=== PATIENT | female | born 2000 | race Caucasian/White ===

== ENCOUNTER 2021-02-05 01:51 | Emergency (ER) | payer OTHER, SELFPAY ==
[2021-02-05 02:02] VITALS: BP 103/73; PULSE 69; RESP 16; TEMP 36.3; O2SAT 98
--- NOTE | 2021-02-05 02:30 | ED.ANIMALBIT ---
HPI - Animal Bite General Chief Complaint: Animal Bite Stated Complaint: dog bite Time Seen by Provider: 02/05/21 02:25 Source: patient Mode of arrival: ambulatory Limitations: no limitations History of Present Illness HPI narrative: Patient is a 20-year-old female complaining of lip and left cheek laceration after being bitten by a dog at a bar when she bent down to pet it prior to arrival. Denies any other injuries. Related Data Allergies Allergy/AdvReac Type Severity Reaction Status Date / Time No Known Allergies Allergy Verified 02/05/21 02:11 Review of Systems Review of Systems: All systems reviewed & are unremarkable except as noted in HPI and below PMFSH Social History Social History Gender identity (if verbalized by the patient): Female Comments Past medical history: None Social history: Non-smoker no EtOH or drug use Family history: Noncontributory Exam Const: General: cooperative, healthy appearing, comfortable, no acute distress, well developed, alert and awake; No confusion Orientation/consciousness: oriented to person, oriented to place, oriented to time, patient oriented x3 and No confusion Limitations: no limitations HENMT: Head: normal to inspection, normocephalic and atraumatic Ears: hearing grossly normal bilaterally, TM normal on the right and TM normal on the left General nose exam: Normal external nose present, Normal nares present and No nasal discharge present Mouth: Yes Normal oral and palatal mucosa present, Yes tongue normal and Yes oropharynx normal Throat: posterior oropharynx normal, tonsils normal and uvula midline Other: Upper lip laceration measuring approximately 3 cm Left cheek laceration measuring approximately 2 cm Eyes: General: appearance normal, both eyes and all related structures Pupils: Equal, round and reactive pupils present EOM: EOMs intact bilaterally Neck: Neck: normal visual inspection, full ROM, no lymphadenopathy and no meningeal signs Chest: Chest palpation & inspection: normal inspection of the chest Resp: Effort & Inspection: normal respiratory effort, able to speak in complete sentences, no respiratory distress and not tachypneic Auscultation: clear to auscultation bilaterally, no crackles, no rales, no rhonchi and no wheezes Cardio: Rate: regular rate Rhythm: regular rhythm GI: Inspection: normal to inspection GI Palp: No abdominal tenderness, Yes Soft to palpation, No Tenderness to palpation present (GI), No Guarding due to palpation present (GI), No Rigid due to palpation and No Rebound tenderness present Auscultation: normal bowel sounds : General: Yes no CVA tenderness Back/Spine/Pelvis: Back: no CVA tenderness Skin: General skin exam: normal color, no rashes or lesions noted, elasticity normal and turgor normal Neuro: General: oriented to person, oriented to place, oriented to time, patient oriented x3, tone normal, moves all extremities, Normal light touch and pain sensation, no meningeal signs, no focal motor deficits, CN's II-XI intact bilaterally and No confusion Cranial nerves: Yes Equal, round and reactive pupils present Speech: No Abnormal speech present Sensory Exam: No Sensory deficit (Neuro) Extrem: General: normal to inspection, full ROM and capillary refill normal Psych: Appearance: grossly normal and well kempt Mental Status: mental status grossly normal Speech and movement: Normal speech and movement present Affect: normal affect Attitude: cooperative Thought process: Normal thought process present Thought content: Yes Normal thought content present Insight: Good insight present (Psych) Judgement: Good judgement present (Psych) Course Vital Signs Vital signs: Vital Signs Temperature 36.3 C L 02/05/21 02:02 Pulse Rate 69 02/05/21 02:02 Respiratory Rate 16 02/05/21 02:02 Blood Pressure 103/73 02/05/21 02:02 Pulse Oximetry 98 02/05/21 02:02 Temperature 36.3 C L 02/05/21 02:02 Pulse Rate 69
[2021-02-05] MEDS: AMOXICILLIN/CLAVULANATE K 500-125 MG TAB 1 TABLET PO (03:51)
[2021-02-05 03:53] VITALS: BP 123/78; PULSE 91; RESP 16; O2SAT 99
== END 2021-02-05 03:53 | disposition home or self-care (01) ==
LOC: ANHED 03:29
PROVIDERS: Emergency Provider Emergency Medicine
DX: S01.511A Laceration without foreign body of lip, initial encounter (principal); S01.81XA Laceration without foreign body of other part of head, initial encounter; W54.0XXA Bitten by dog, initial encounter
CPT/HCPCS: 12013; 99283; A9270

== ENCOUNTER 2024-04-24 10:51 | Outpatient (CLI) | payer OTHER, SELFPAY ==
[2024-04-24 11:06] LABS: Hematocrit 41.2 % (37.0-47.0); Hemoglobin 13.4 g/dL (12.0-15.0)
== END 2024-04-24 10:52 | disposition home or self-care (01) ==
PROVIDERS: Visit Provider Obstetrics & Gynecology
DX: Z01.812 Encounter for preprocedural laboratory examination (principal); N94.6 Dysmenorrhea, unspecified
CPT/HCPCS: 36415; 85014; 85018; 86850; 86900; 86901

== ENCOUNTER 2024-04-26 01:36 | Day surgery (SDC) | payer OTHER, SELFPAY ==
[2024-04-18 09:58] VITALS: BMI 23.8
--- NOTE | 2024-04-18 10:10 | PC.NURSE ---
Report to the Outpatient Waiting Room, entrance under the green pavilion located off [facility], at time ____529___ on date ___04/26/24___. Planned Procedure Time: .? Time changes happen often and if your time is changed the preop area will call you the afternoon before. - You and your visitor will be asked to self-screen and do not enter if you have any COVID symptoms. Please call surgeon if you need to reschedule. - A mask is optional within the hospital at this time. Patients may have clear liquids (water, carbonated beverages, clear teas, apple juice) until 3 hours prior to surgery with a maximum of 20 ounces. - No food from midnight until time of surgery and no smoking - Infants may have breast milk until 4 hours before surgery, infant formula 6 hours prior to surgery. - Children will be allowed to drink immediately following surgery.? If applicable, please bring a bottle or sippy cup to assist with drinking. Juice, water, soda, and popsicles are readily available.? For infants on formula, please bring formula the day of surgery.? Pacifiers are allowed. Take only the following medications with a SIP of water on the morning of surgery: ____N/A DO NOT STOP ANY OF YOUR OTHER PRESCRIPTION MEDICATIONS PRIOR TO SURGERY EXCEPT THE FOLLOWING Medications to discontinue per physician N/A Date to take last dose N/A Please no make-up, nail nicaraguan, hairspray, perfume, deodorant, or body powder the day of surgery.? No jewelry (including any body piercings) or valuables the day of surgery, leave them at home.? Please take a shower or bath the night before, or the morning of, surgery with an antibacterial soap.? Wear comfortable, loose fitting clothing.? Children are encouraged to wear pajamas. - Jewelry must be removed prior to entering the operating room.? Rings and piercings that are not removed may be cut off. - The hospital will not accept responsibility for valuables.? - Please leave all valuables, including medications, at home the day of surgery. If you are going home after surgery, a licensed bicycle taxi driver must drive you home.? - NO public transportation without another adult if you receive anesthesia. - We recommend that an adult stay with you for 24 hours following discharge. - We also recommend that you do not drive, make important decision, drink alcoholic beverages, or take any drugs that were not prescribed by your health care provider for at least 24 hours after your discharge time. For Pediatric surgeries, we recommend two adults accompany the child home. Follow any additional instructions given to you from your surgeon. Telephone instructions given to Francia Ortiz and asked if any additional questions and then verbalized understanding. Patient advised to call surgeon office or pre surgery nurse liaison [phone] if any additional questions.
--- NOTE | 2024-04-24 12:56 | PM.IMHP ---
H&P: HPI History of Present Illness Date/Time: 04/24/24 12:56 Chief Complaint: Pelvic pain/menstrual bleeding Narrative: A 23 year admitted for diagnostic laparoscopy hysteroscopy dilatation curettage secondary to continued irregular bleeding pain and dyspareunia. 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 She has pain discomfort bleeding she will undergo laparoscopy hysteroscopy dilatation curettage. Risks and benefits reviewed including minute exclusive of , aspiration pneumonia, bleeding, transfusion, perforation to bowel, bladder, ureters or other internal organs with need for laparotomy. She received the [employer] handout entitled hysteroscopy/dilatation curettage/laparoscopy. She asked to proceed [facility] Social History Social History Smoking status: Never smoker Second hand tobacco smoke exposure: Yes Alcohol intake: current Drinks per week: 2 Alcohol use details: sometimes 6 per week but not often Substance use type: does not use Living arrangements: alone Gender identity (if verbalized by the patient): Female Spiritual care concerns: No Meds Home Medications and Allergies Home Medications Medication Instructions Recorded Confirmed Type escitalopram oxalate 10 mg tablet 10 mg PO HS 04/18/24 04/18/24 History medroxyprogesterone 150 mg/mL 150 mg IM [id number] 04/18/24 04/18/24 History intramuscular syringe Allergies Allergy/AdvReac Type Severity Reaction Status Date / Time No Known Allergies Allergy Verified 04/18/24 09:54 Exam Const: General: cooperative, healthy appearing and comfortable Nutritional Appearance: average body habitus Orientation/consciousness: oriented to person, oriented to place and oriented to time HENMT: Head: normal to inspection Resp: Effort & Inspection: normal respiratory effort Cardio: Rate: regular rate Rhythm: regular rhythm Heart sounds: S1 normal heart sound present and S2 normal heart sound present GI: Inspection: normal to inspection : External Female Exam: normal external appearance Speculum Exam - Vagina: normal appearance of the vagina Speculum Exam - Cervix: normal appearance of the cervix Bimanual exam- vagina & uterus: Uterus displaced and Uterine tenderness Bimanual Exam- Adnexa, other: normal adnexae Assessment and Plan Assessment and plan (1) Pelvic pain: Code(s): R10.2 - Pelvic and perineal pain Status: Acute (2) Dyspareunia: Status: Acute (3) Excessive bleeding: Code(s): R58 - Hemorrhage, not elsewhere classified Status: Acute Assessment and Plan: Hysteroscopy/dilatation curettage/laparoscopy
[2024-04-26] VITALS (8 sets, daily range): BP systolic 92–108; BP diastolic 61–80; PULSE 73–92; RESP 14–18; TEMP 36.1–36.9; O2SAT 100
--- NOTE | 2024-04-26 05:39 | WPDHPUPDATE1 ---
History and Physical Update Update Date/Time: 04/26/24 05:39 History and Physical has been reviewed, including an updated exam of the patient. There are NO changes in the patient's condition. Risks, benefits, and alternatives have been discussed and questions answered. Patient agrees to proceed with procedure.
[2024-04-26] MEDS: LACTATED RINGERS 1,000 ML 30 ML IV CONT ×2 (06:18→08:18)
[2024-04-26] MEDS: ACETAMINOPHEN 500 MG TABLET 1000 MG PO (06:20)
[2024-04-26] MEDS: KETOROLAC 15 MG/ML VIAL (*BKC) IV PUSH (06:20)
--- NOTE | 2024-04-26 06:53 | P.PNAN_ITS ---
Anes - Initial Pre Proc Eval Procedure: Operation Date: 04/26/24 07:30 Proposed Procedures p Diagnostic Laparoscopy, - Lorne Tate MD s Hysteroscopy Dilation and Curettage - Lorne Tate MD Date/Time: 04/26/24 06:53 Surgeon: Lorne Tate MD Pre Op Diagnosis: pain, irr. bleeding,dyspareunia,Dysmenorrhea Patient Data Age: 23 Gender: F Height: 1.57 m Weight: 62.5 kg Last Vital Signs Temp 36.1 C L 04/26/24 06:08 Pulse 90 04/26/24 06:08 Resp 16 04/26/24 06:08 BP 107/64 04/26/24 06:08 Pulse Ox 100 04/26/24 06:08 O2 Del Method Room Air 04/26/24 06:08 Allergies Allergy/AdvReac Type Severity Reaction Status Date / Time No Known Allergies Allergy Verified 04/26/24 06:25 Home Medications Medication Instructions Recorded Confirmed Type escitalopram oxalate 10 mg tablet 10 mg PO HS 04/18/24 04/26/24 History medroxyprogesterone 150 mg/mL 150 mg IM [id number] 04/18/24 04/26/24 History intramuscular syringe hydrocodone 5 mg-acetaminophen 325 1 tablet PO Q4H PRN pain #20 tabs 04/26/24 Rx mg tablet Patient hx anesthesia problems: none Family hx anesthesia problems: none Results Review: All pre-operative results and documents have been reviewed as part of the pre- operative evaluation. [facility] Social History Social History Smoking status: Never smoker Second hand tobacco smoke exposure: Yes Alcohol intake: current Drinks per week: 2 Alcohol use details: sometimes 6 per week but not often Substance use type: does not use Living arrangements: alone Gender identity (if verbalized by the patient): Female Spiritual care concerns: No Anes - Eval Final PreProcedure Day of Procedure 04/26/24 06:53 Patient weight: normal Heart: regular rate and rhythm Lungs: clear to auscultation Airway: Mallampati scale class II Neurological: alert and oriented Last oral intake: >/= 8 hours ASA classification: II Emergent: no Anesthetic plan: proceed Anesthesia type and monitoring: general ETT and standard monitoring Results Review: All pre-operative results and documents have been reviewed as part of the pre- operative evaluation. Informed Consent: The patient's anesthetic plan and its attendant risks and benefits were discussed with the patient/family/POA. Questions were solicited and answers provided to the satisfaction of the patient/family/POA.
--- NOTE | 2024-04-26 08:15 | P.OP_ITS ---
Procedure Note - Detailed Date of Procedure 04/26/24 Pre-op Diagnosis pain, irr. bleeding,dyspareunia,Dysmenorrhea Post-op Diagnosis Other (Bicornuate uterus /pelvic adhesions) Procedure Performed Laparoscopy hysteroscopy D&C Surgeon Lorne Tate MD Anesthesia General Indications 23-year-old female with finding of an irregular uterus on ultrasound bleeding and pain Findings single cervix was seen. There appeared to be almost separate uteri each with a fallopian tube and ovary. This was assumed to be a large uterine septum present normal-appearing gallbladder liver and appendix Description of Procedure patient was prepped draped in the normal sterile fashion placed in the dorsal lithotomy position. Under excellent general trach anesthesia weighted speculum placed posterior fornix vagina. Anterior lip of the cervix grasped with single- tooth tenaculum. Rodríguez's cannula inserted attached to the single-tooth to be used later for uterine manipulation. Bladder is emptied of clear urine the weighted speculum was removed. Gloves were changed. An infraumbilical incision made in the Veress needle passed in the abdomen. Abdomen filled with CO2 gas [id number]. The 5mm trocar advanced under direct visualization assuring no injury. Patient placed in Trendelenburg and suprapubic incision made. The 5mm trocar advanced under direct visualization assuring no injury. Interesting finding include uterus to be what appeared almost 2 separate uteri with a small approximately 2cm across septum these 2 uteri. There were some adhesions on the left and these were sharply dissected no evidence of any other abnormalities were seen as the tubes and ovaries appeared within normal limits so did the appendix and so did liver and gallbladder. Photo documentation was undertaken she will be referred on with this. The trocars removed after gas removed abdomen. The incisions closed with 4 Monocryl and glue. T Attention was turned to the hysteroscopic hysteroscopy. The uterus was unable to be sounded easily. Dilatation was undertaken and the what appeared to be the uterine septum was in the way and made it very difficult to be able to view other parts of the uterus on either side. At that point in order to avoid harm that portion was scraped and the instruments removed patient went to recovery in satisfactory condition. All sponge, needle, instrument counts were correct. There were no immediate complications Estimated Blood Loss 25 Drains No Packing No Pathology Yes Complications No immediate complications Condition Stable Disposition PACU
[2024-04-26 08:27] LABS: BEDSIDEPREGUCG Negative (Negative)
[2024-04-26] MEDS: fentaNYL CITRATE INJ (*CRX) 100 MCG/2 ML VIAL 25 MCG IV PUSH ×2 (08:28→08:31)
[2024-04-26] MEDS: oxyCODONE HCL (*CRX) 5 MG TAB IR PO (09:17)
[2024-04-26] MEDS: ONDANSETRON HCL ODT 4 MG TABLET PO (10:29)
== END 2024-04-26 10:29 | disposition home or self-care (01) ==
PROVIDERS: Visit Provider Obstetrics & Gynecology
PROC: (CPT 49320; principal; 2024-04-26 07:30)
PROC: 0U5B8ZZ Destruction of Endometrium, Via Natural or Artificial Opening Endoscopic (ICD-10-PCS; CPT 58563; 2024-04-26 07:30)
DX: N73.6 Female pelvic peritoneal adhesions (postinfective) (principal); Q51.3 Bicornate uterus; N93.9 Abnormal uterine and vaginal bleeding, unspecified; N94.6 Dysmenorrhea, unspecified
CPT/HCPCS: 58558; 88305; A9270; J1100; J1885; J2250; J2405; J2704; J3010; J7030; J7120

== ENCOUNTER 2025-03-12 19:28 | Emergency (ER) | payer OTHER, SELFPAY ==
--- NOTE | 2025-03-12 19:29 | ED_ITS ---
HPI - Ear Problem General Chief complaint: Ear Stated complaint: ear infection Time Seen by Provider: 03/12/25 19:28 Source: patient Mode of arrival: ambulatory Limitations: no limitations History of Present Illness HPI Narrative: Patient is a 24-year-old female presents with ear pain for 1 week. Reports worsening pain since yesterday. Patient has been taking ibuprofen with no relief. Has not take allergy medicine or sinus medicine. Did go to a water park prior to symptoms starting. Denies any fever, chills, congestion, sore throat, dental issues. MD Complaint: ear pain Related Data Home Medications ?Medication ?Instructions ?Recorded ?Confirmed ?Last Taken ?Type escitalopram oxalate 10 mg tablet 10 mg PO HS 04/18/24 03/12/25 04/18/24 History medroxyprogesterone 150 mg/mL 150 mg IM [id number] 04/18/24 03/12/25 12/14/23 History intramuscular syringe Allergies Allergy/AdvReac Type Severity Reaction Status Date / Time No Known Allergies Allergy Verified 03/12/25 19:29 Review of Systems Review of Systems: All systems reviewed & are unremarkable except as noted in HPI and below Constitutional: Constitutional: Denies body ache(s), Denies chills, Denies fever(s), Denies headache(s) and Denies malaise Eyes: Eyes: Denies blurry vision, Denies eye discharge and Denies irritation ENT: Reports otalgia, Denies headache(s), Denies nasal congestion, Denies nasal discharge and Denies sore throat Cardiovascular: Cardiovascular: Denies chest pain, Denies edema, Denies palpitations and Denies dyspnea on exertion Respiratory: Respiratory: Denies cough and Denies dyspnea on exertion Gastrointestinal: Gastrointestinal: Denies abdominal pain, Denies diarrhea, Denies nausea and Denies vomiting Musculoskeletal: Musculoskeletal: Denies back pain, Denies arthralgias and Denies muscle weakness Integumentary/Breasts: Skin/Breast: Denies pruritus and Denies rash Neurologic: Denies headache(s) Psychiatric: Psychiatric: Reports no additional psychiatric complaints Endocrine: Endocrine: Denies palpitations PMFSH Social History Social History Smoking status: Never smoker Second hand tobacco smoke exposure: Yes Alcohol intake: current Drinks per week: 2 Alcohol use details: sometimes 6 per week but not often Substance use type: does not use Living arrangements: alone Gender identity (if verbalized by the patient): Female Spiritual care concerns: No Comments At time of signature, agree with nursing past medical, surgical, social and family history. There is no relevant family history pertinent to the presenting complaint? Exam Const: General: cooperative, healthy appearing, no acute distress and well nourished Nutritional Appearance: well nourished Orientation/consciousness: patient oriented x3 Limitations: no limitations HENMT: Head: normal to inspection, normocephalic and atraumatic Ears: hearing grossly normal bilaterally, EAC's normal, no periauricular adenopathy and TM abnormal bulging on the right and erythematous on the right Face/Nose/Sinus: Normal external nose present, Normal nares present, Normal nasal mucous membranes and turbinates present, No nasal discharge present, normal facial exam and sinuses nontender Face and sinus: normal facial exam and sinuses nontender Mouth: Yes Normal oral and palatal mucosa present, Yes lip normal, Yes tongue normal and Yes moist mucous membranes Throat: posterior oropharynx normal, tonsils normal and uvula midline Eyes: General: appearance normal, both eyes and all related structures Alignment and Position: alignment normal and position normal Eyelids: eyelids normal Pupils: Equal, round and reactive pupils present EOM: EOMs intact bilaterally Neck: Neck: normal visual inspection, full ROM, no lymphadenopathy and supple Chest: Chest palpation & inspection: normal inspection of the chest Resp: Effort & Inspection: normal respiratory effort and able to speak in complete sentences Auscultation: clear to auscultation bilaterally, no crackles, no rales, no rhonchi and no wheezes Cardio: Rate: regular rate Rhythm: regular rhythm Heart sounds: S1 normal heart sound present and S2 normal heart sound present Skin: General skin exam: normal color and no rashes or lesions noted Neuro: General: patient oriented x3 and moves all extremities Cranial nerves: Yes Equal, round and reactive pupils present Cognition (Neuro): normal cognition Speech: normal speech Gait exam (Neuro): Normal gait present Extrem: General: normal to inspection and full ROM Psych: Appearance: grossly normal and well kempt Mental Status: mental status grossly normal Speech and movement: Normal speech and movement present Course Course Emergency Course: Patient is aware of diagnosis, understands and agrees to treatment plan.? Anticipatory guidance given.? Patient agrees to follow-up as directed and is aware of reasons to seek care at the emergency department.? Portions of this record may have been created with voice recognition software? Level of Care: Express Care Visit Vital Signs Vital signs: Reviewed Medical Decision Making MDM Narrative Medical decision making narrative: Pt well hydrated appearing, in no respiratory distress, hemodynamically stable. Recommend supportive care. The patient is stable at time of discharge the clinical impression was discussed and the patient was given the opportunity to ask questions, which were addressed as completely as possible given the information available at present. Anticipatory guidance and return to care precautions were discussed and the importance of primary care follow-up was stressed and encouraged. The patient voiced understanding of the plan, indications to return, and the need for follow-up. Exam findings show no acute concerns or changes Patient is appropriate for outpatient treatment and follow-up. Differential diagnosis considered: otitis media, otitis externa, otitis effusion, foreign body, cerumen impaction, viral syndrome Medical Records Medical records reviewed: Yes I reviewed the external patient's medical records. Discharge Plan Discharge Clinical Impression: Otitis media Qualifiers: Otitis media type: suppurative Chronicity: acute Laterality: right Recurrence: non-recurrent Spontaneous tympanic membrane rupture: without spontaneous rupture Qualified Code(s): H66.001 - Acute suppurative otitis media without spontaneous rupture of ear drum, right ear Patient Disposition: Home Condition: Stable Instructions: Ear Infection (GEN) Additional Instructions: Take antibiotics as directed. Recommend antihistamine such as Benadryl at night time and Zyrtec or Opal during the day until symptoms improve Flonase nasal spray, 1 spray in each nostril once daily until symptoms improve Also, recommend symptomatic treatment includes: rest, fluids, and increase humidity of the air at home. Recommend Acetaminophen as directed on the bottle to reduce fever, pain Please schedule a follow-up visit with your personal physician for further evaluation and treatment within 3-5days. If your symptoms persist, change or worsen significantly before you can contact your personal physician then please, without delay, go to the emergency department for further evaluation. Patient Language: Lithuanian Prescriptions: New amoxicillin 875 mg tablet 875 mg PO Q12H 7 Days Qty: 14 0RF fluticasone propionate [Flonase Allergy Relief] 50 mcg/actuation spray,suspension 1 spray intranasal DAILY Qty: 16 0RF Rx Instructions: administer into each nostril loratadine 10 mg tablet 10 mg PO DAILY Qty: 30 0RF No Action medroxyprogesterone 150 mg/mL syringe 150 mg IM [id number] escitalopram oxalate 10 mg tablet 10 mg PO HS Follow-up/Referrals: Chang Talley MD [Physician] - 3 Days Time of Disposition: 19:40
--- OUTSIDE RECORDS SUMMARY | 2025-03-12 19:30 | XMS_ITS | Clinical Summary ---
Author Organization [facility] Address [address] [place] [address] Care Team Providers Care Masonry Inspector Name Role Phone Guicho Hanley MD Primary Care Provider [phone] [facility],non-owned Affiliates and Associated Physician Practices is amultiple site organization consisting of ambulatory clinics and hospital sitesin [place], [place], [place]. This disclosure is being madepursuant to the Care Everywhere program and may not contain all information available regarding this patient. Last updated 18.[facility] 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 Gender Identity Not on file Sexual Orientation Not on file Plan of Treatment Health Maintenance Due Date Last Done Comments HIV SCREENING 2016 HPV VACCINE (1 - 3-dose series) 2016 CHLAMYDIA/GONORRHEA SCREENING 2017 MENINGOCOCCAL (Group B) VACC INE SHARED DECISION-MAKING (1 of 2 - Standard) 2017 HEPATITIS C SCREENING 08/29/2019 DTAP/TDAP/TD VACCINES (1 - Tdap) 2020 HEPATITIS B VACCINE (1 of 3 - 19+ 3-dose series) 2020 PAP SMEAR 2022 COVID-19 VACCINE (1 - 2023-2 5 season) 2024 DEPRESSION SCREENING 08/15/2024 INFLUENZA VACCINE (#1) 2025 ZOSTER VACCINE (1 of 2) 2051 HIB VACCINE Aged Out No longer eligi ble based on patient's age to complete this topic MENINGOCOCCAL GROUPS A/C/Y/W VACCINE Aged Out No longer eligible b ased on patient's age to complete this topic PNEUMOCOCCAL VACCINE Aged Out No long er eligible based on patient's age to complete this topic Insurance [facility] SELF PAY NO INSURANCE Member Subscriber Plan / Payer (Ef fective for All Dates) Name:Francia Ortiz Member ID:Not on file Relation to Subscriber:Not on file Name:FRANCIA ORTIZ Subscriber ID:Not on file (Home) Address: [address] [place] [address] Payer ID:Not on file Group ID:Not on file Type:Self Pay Address: [place], [place] Care Teams Masonry Inspector Relationship Specialty Start Date End Date Guicho Hanley MD [phone] (work) PCP - General 05/24/12
--- OUTSIDE RECORDS SUMMARY | 2025-03-12 19:30 | XMS_ITS | Clinical Summary ---
Author Organization [facility] Address [address] [place] [address] Care Team Providers Care General Manager Farm Name Role Phone Guicho Hanley MD Primary Care Provider Encounters Date Type Department Care Team Description 03/07/2025 7:00 AM CDT - 03/07/2025 11:59 PM CDT Hospital Encounter [facility] [address] Linda Mayfield MD Dichsen, Stacie L, PT Discharge Disposition: Home or Self Care (Routine Discharge) 03/07/2025 Travel 02/28/2025 7:58 AM CDT - 02/28/2025 11:59 PM CDT Hospital Encounter [facility] [address] Linda Mayfield MD Dichsen, Stacie L, PT Discharge Disposition: Home or Self Care (Routine Discharge) 02/28/2025 Travel 02/21/2025 9:30 AM CDT - 02/21/2025 11:59 PM CDT Hospital Encounter [facility] [address] Linda Mayfield MD Dichsen, Stacie L, PT Discharge Disposition: Home or Self Care (Routine Discharge) 02/21/2025 Travel 02/14/2025 Therapy Plan [facility] [address] Laura Pelaez, PT 02/07/2025 6:59 AM CDT - 02/07/2025 11:59 PM CDT Hospital Encounter [facility] [place] [address] Linda Mayfield MD Dichsen, Stacie L, PT Discharge Disposition: Home or Self Care (Routine Discharge) 02/07/2025 Travel 01/28/2025 12:31 PM CDT - 01/28/2025 11:59 PM CDT Hospital Encounter [facility] [place] [address] Linda Mayfield MD Dichsen, Stacie L, PT Discharge Disposition: Home or Self Care (Routine Discharge) 01/28/2025 Travel from Last 3 Months Social History Tobacco Use Types Packs/Day Years Used Date Smoking Tobacco: Never Assessed Comments Unknown Sex and Gender Information Value Date Recorded Sex Assigned at Female 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 Legal Sex Female 5:47 PM CDT Gender Identity Not on file Sexual Orientation Not on file Plan of Treatment Upcoming Encounters Date Type Department Care Team (Late st Contact Info) Description 04/03/2025 7:00 AM CDT Appointment [facility] [place] [address] Laura Pel[place], [place] [address] 04/09/2025 7:00 AM CDT Appointment [facility] [place] [address] Laura Pelae[place], [place] [address] Health Maintenance Due Date Last Done Comments Cervical Cancer Screening Pap Smear (Age 21 to 29) Every 3 Years 2001 Cervical Cancer Screening 2001 Annual Physical 2004 Hepatitis C 2019 COVID-19 Vaccine ( season) 2024 07/08/2021 DTaP, Tdap and Td Vaccines (9 - Td or Tdap) 01/18/2026 01/19/2016, 05/17/2013, 04/10/2013, Additional history exists Hepatitis B Vaccines Completed 03/21/2002, 2001, 2001 HPV Vaccines Completed 01/19/2016, 0802/2015, 03/25/2014, Additional history exists Meningococcal Vaccine Completed 03/21/2018 , 01/19/2016, 04/10/2013 Meningococcal B Vaccine Completed 01/30/2020, 03/21 Pneumococcal Vaccine: Pediatrics (0 to 5 Years) and At-Risk Patients (6 to 49 Years) Aged Out No longer eligible based on patient's age to complete this topic RSV Immunizations Under 20 Months Aged Out No longer eligible based on patient's age to complete this topic Insurance [employer] Care Teams General Manager Farm Relationship Specialty Start Date End Date Guicho Hanley MD PCP - General 04/20/13
--- OUTSIDE RECORDS SUMMARY | 2025-03-12 19:30 | XMS_ITS | Encounter Summary ---
Author Organization [facility] Address [address] [place] [address] Care Team Providers Care Surface Room Shop Optician Name Role Phone Hannah Subramanian DO Primary Care Provider [phone] Encounter Details Date Type Department Care Team (Late st Contact Info) Description 06/29/2023 Prep for Case [facility] Family Medicine [address] [place] [phone] Hannah Subramanian DO [address] [place] [address] Social History Tobacco Use Types Packs/Day Years Used Date Smoking Tobacco: Never Smokeless Tobacco: Never Alcohol Use Standard Drinks/Week Comments Yes 0 (1 standard drink = 0.6 oz pur e alcohol) occasionally PHQ-2 Answer Date Recorded PHQ-2 Score 0 03/17/2020 Comments No Sex and Gender Information Value Date Recorded Sex Assigned at Not on file Legal Sex Female 9:00 PM CDT Gender Identity Not on file Sexual Orientation Not on file documented as of this encounter Plan of Treatment Not on file documented as of this encounter Visit Diagnoses Not on filedocumented in this encounter Additional Health Concerns Assessment Noted Time PHQ-9 Depression Total Score: 2 03/21/20 18 11:38 AM CDT documented as of this encounter Care Teams Surface Room Shop Optician Relationship Specialty Start Date End Date Hannah Subramanian DO [address] [address] PCP - General Family Medicine 09/07/21 documented as of this encounter
--- OUTSIDE RECORDS SUMMARY | 2025-03-12 19:30 | XMS_ITS | Clinical Summary ---
Author Organization [facility] Address [address] [place] [address] Care Team Providers Care Bond Writer Name Role Phone No, Physician Primary Care Provider [phone] Hannah Subramanian DO Unavailable [phone] Allergies No known active allergies Medications No known medications Active Problems No known active problems Encounters Date Type Department Care Team Description 12/11/2024 Telephone [facility] Clinic [address]rd Floor [address] [place] [address] Jessica Lenz from Last 3 Months Social History Tobacco Use Types Packs/Day Years Used Date Smoking Tobacco: Never Smokeless Tobacco: Never Tobacco Cessation:Counseling Given: No Hunger Vital Sign Answer Date Recorded Within the past 12 months, y ou worried that your food would run out before you got the money to buy more. Never true 07/09/20 24 Within the past 12 months, t he food you bought just didn't last and you didn't have money to get more. 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 Gender Identity Not on file Sexual Orientation Not on file Obstetrics History Para Term AB IAB SAB Ectopic Multiple Livin g Live Births 0 0 0 0 0 0 0 0 0 0 0 Last Filed Vital Signs Vital Sign Reading Time Taken Comments Blood Pressure 114/66 07/09/2024 2:46 PM FISHERIES TECHNICAL OFFICER Pulse 86 07/09/2024 2:46 PM FISHERIES TECHNICAL OFFICER Temperature - - Respiratory Rate 18 07/09/2024 2:46 PM FISHERIES TECHNICAL OFFICER Oxygen Saturation 100% 07/09/2024 2:46 PM FISHERIES TECHNICAL OFFICER Inhaled Oxygen Concentration - - Weight 63 kg (139 lb) 07/09/2024 2:46 PM FISHERIES TECHNICAL OFFICER Height 157.5 cm (5' 2) 07/09/2024 2:46 PM FISHERIES TECHNICAL OFFICER Body Mass Index 25.42 07/09/2024 2:46 PM FISHERIES TECHNICAL OFFICER Plan of Treatment Health Maintenance Due Date Last Done Comments Cervical Cancer Screening 2001 Depression Screening 2001 Hepatitis C Screening 2001 Regular Well Visit/Exam 18-64 2019 Influenza Vaccine (#1) 2025 9, 06/06/2013, 08/08/2012 DTaP/Tdap/Td Vaccine (9 - Td or Tdap) 01/18/2026 01/19/2016, 05/17/2013, 04/10/2013, Additional history exists Hepatitis B Screening Completed 03/21/2002 , 2001, 2001 Varicella Vaccines Completed 01/18/2007, 03/26/2003 HPV Vaccines Completed 03/21/2015, 03/15, 04/10/2013 Meningococcal B Vaccine Completed 01/30/2020, 03/21 Pneumococcal vaccine <65 Aged Out No longer eligible based on patient's age to complete this topic Insurance [place] [address] [facility] Care Teams Bond Writer Relationship Specialty Start Date End Date No, Physician PCP - General 07/09/24 Hannah Subramanian, [address] [place] [address] Family Medicine 07/09/24
--- OUTSIDE RECORDS SUMMARY | 2025-03-12 19:30 | XMS_ITS | Referral Summary ---
Author Organization [facility] Address [address] [place] [address] Care Team Providers Care Automatic Coil Machine Operator Name Role Phone No, Physician Primary Care Provider [phone] Hannah Subramanian DO Unavailable [phone] Encounters Date Type Department Care Team Description 12/11/2024 Telephone Obstetrics and Gynecology Clinic [address] [place] [address] Outpatient Health 3rd Floor [address] [place] [address] Jessica Lenz from Last 3 Months Allergies No known active allergies Medications No known medications Active Problems No known active problems Social History Tobacco Use Types Packs/Day Years [...] on file Legal Sex Female 3:37 AM SUPERVISOR GARAGE Gender Identity Not on file Sexual Orientation Not on file Last Filed Vital Signs Vital Sign Reading Time Taken Comments Blood Pressure 114/66 07/09/2024 2:46 PM SUPERVISOR GARAGE Pulse 86 07/09/2024 2:46 PM SUPERVISOR GARAGE Temperature - - Respiratory Rate 18 07/09/2024 2:46 PM SUPERVISOR GARAGE Oxygen Saturation 100% 07/09/2024 2:46 PM SUPERVISOR GARAGE Inhaled Oxygen Concentration - - Weight 63 kg (139 lb) 07/09/2024 2:46 PM SUPERVISOR GARAGE Height 157.5 cm (5' 2) 07/09/2024 2:46 PM SUPERVISOR GARAGE Body Mass Index 25.42 07/09/2024 2:46 PM SUPERVISOR GARAGE Plan of Treatment Not on file Insurance [facility] Care Teams Automatic Coil Machine Operator Relationship Specialty Start Date End Date No, Physician PCP - General 07/09/24 Hannah Subramanain, [address] [place], [place] [address] Family Medicine 07/09/24
--- OUTSIDE RECORDS SUMMARY | 2025-03-12 19:30 | XMS_ITS | Clinical Summary ---
Author Organization [facility] Address [address] [place] [address] Care Team Providers Care Applied Computer Science Professor Name Role Phone Moris Hannah Yani ALEGRIA Primary Care Provider [phone] Allergies No known active allergies Medications medroxyPROGESTERon e (Depo-Provera) 150 mg/mL syringeIndications :Encounter for initial prescription of injectable contraceptive Inject 1 mL into a large muscle every 3 (three) months 1 mL 3 3 Active escitalopram (Lexapro) 10 mg tabletIndications: Anxiety Take 1 tablet (10 mg total) by mouth daily 90 tablet 3 4 Active Active Problems Problem Noted Date Diagnosed Date Anxiety 07/04/2023 Assessment & Plan (11/16/2023 10:11 AM CDT): Symptoms improved with Lexapro Will continue current medicatons Assessment & Plan (07/04/2023 9:12 AM STRUCTURAL STEEL FITTER): Patient doing well on current medication WIll refill Lexapro Encounter for initial prescr iption of injectable contraceptive 07/04/2023 Encounter for surveillance of injectable contrac eptive 09/11/2021 Assessment & Plan (09/11/2021 12:43 PM STRUCTURAL STEEL FITTER): Patient tolerating medication without side effects Will continue with current treatment Elevated liver enzymes 05/26/2021 Assessment & Plan (05/26/2021 1:04 PM CDT): Reviewed ER lab results with patient and foster mother Recommend recheck of labs Avoid tylenol for pain control, advise limiting [place] given in ER Encourage heat/ice, topical analgesics for pain relief Avoid ETOH Leukocytosis 05/26/2021 Assessment & Plan (05/26/2021 1:05 PM CDT): Reviewed labs with patient and foster mother No evidence of infectious process Recommend repeat labs Patient agreeable Rib contusion, right, subsequent encounter 05/26 Assessment & Plan (05/26/2021 1:06 PM CDT): Encourage heat/ice, topical analgesics for pain relief Limited use of tylenol due to elevated LFT in ER Limited use of NSAIDs due to hx of single kidney Follow up if symptoms do not improve Contusion of hip and thigh, subsequent encounter 05/26/2021 Assessment & Plan (05/26/2021 1:06 PM CDT): Encourage heat/ice, topical analgesics for pain relief Limited use of tylenol due to elevated LFT in ER Limited use of NSAIDs due to hx of single kidney Follow up if symptoms do not improve Small kidney, unilateral 03/21/2018 Immunizations Immunization Administration Dates Next Due DTaP 04/10/2013, 6,03/26/2003,03/21/2002,0 01/03/2002,2001 HPV, Quadrivalent 03/21/2015,03/25/2014,04/10/20 13 Hep A Pediatric, Unspecified 03/19/2010 Hep A, 2 Dose 08/21/2010,03/19/2010 Hep A, Unspecified 08/21/2010 Hep B, Adolescent or Pediatric 03/21/2002,2001,2001 HiB 03/26/2003,03/21/2002,01/03/2002 Hpv 9 01/19/2016 IPV 12/01/2005,03/21/2002,01/03/2002 ,2001 Influenza (IM) Quad PF 06/06/2013 Influenza 4VAL 3YRS+ 04/06/2019 Influenza LAIV (Nasal) 08/08/2012 MMR 12/01/2005,03/26/2003,02/23/2003 Meningococcal B, Recombinant 01/30/2020,03/21/20 18 Meningococcal Conjugate 03/21/2018,01/19/2016 Meningococcal MCV4P 04/10/2013 Tdap 01/19/2016,05/17/2013 Varicella 01/18/2007,03/26/2003 Social History Tobacco Use Types Packs/Day Years Used Date Smoking Tobacco: Never Smokeless Tobacco: Never Tobacco Cessation:Counseling Given: No Alcohol Use Standard Drinks/Week Comments Yes 0 [...] Sign Reading Time Taken Comments Blood Pressure 105/60 11/16/2023 9:24 AM CDT Pulse 93 11/16/2023 9:24 AM CDT Temperature 36.5 C (97.7 F) 11/16/2023 9:24 AM CDT Respiratory Rate 18 11/16/2023 9:24 AM CDT Oxygen Saturation 99% 11/16/2023 9:24 AM CDT Inhaled Oxygen Concentration - - Weight 57.2 kg (126 lb) 11/16/2023 9:24 AM CDT Height 157.5 cm (5' 2) 11/16/2023 9:24 AM CDT Body Mass Index 23.05 11/16/2023 9:24 AM CDT Plan of Treatment Health Maintenance Due Date Last Done Comments Pap Smear 2001 Hepatitis A Vaccines (2 of 2 - 2-dose series) 02/18/2011 08/21/2010, 08/21/2010, 03/19/2010, Additional history exists Depression Screening 03/21/2019 03/21/2018 COVID-19 Vaccine (2 - season) 2024 07/08/2021 Influenza Vaccine (#1) 2025 9, 06/06/2013, 08/08/2012 DTaP,Tdap,and Td Vaccines (9 - Td or Tdap) 01/18/2026 01/19/2016, 05/17/2013, 04/10/2013, Additional history exists RSV Vaccines and 60 Years or Older (1 - 1-dose 75+ series) 2076 Hepatitis B Vaccines Completed 03/21/2002, 2001, 2001 HIB Vaccines Completed 03/26/2003, 02/2002, 01/03/2002 IPV Vaccines Completed 12/01/2005, 02/2002, 01/03/2002, Additional history exists MMR Vaccines Completed 12/01/2005, 03/15, 02/23/2003 Varicella Vaccines Completed 01/18/2007, 03/26/2003 HPV Vaccines Completed 01/19/2016, 02/2015, 03/25/2014, Additional history exists Meningococcal ACWY Vaccine Completed 03/21, 01/19/2016, 04/10/2013 Meningococcal B Vaccine Completed 01/30/20, 03/21/2018, 04/10/2013 AMB Pneumococcal 0-49 yrs Aged Out No longer eligible based on patient's age to complete this topic RSV Vaccines <20 Months Aged Out No l onger eligible based on patient's age to complete this topic Insurance [place]ID [place] Care Teams Applied Computer Science Professor Relationship Specialty Start Date End Date Hannah Subramanian DO [address] [place] [address] PCP - General Family Medicine 09/07/21
[2025-03-12 19:35] VITALS: BP 116/73; PULSE 67; RESP 18; TEMP 36.7; O2SAT 100
== END 2025-03-12 19:39 | disposition home or self-care (01) ==
PROVIDERS: Emergency Provider Nurse Practitioner Family
DX: H66.001 Acute suppurative otitis media without spontaneous rupture of ear drum, right ear (principal)
CPT/HCPCS: 99213; G0463

== ENCOUNTER 2025-05-20 19:19 | Emergency (ER) | payer OTHER, SELFPAY ==
--- OUTSIDE RECORDS SUMMARY | 2025-05-20 19:22 | XMS_ITS | Clinical Summary ---
Author Organization [facility] Address [address] [place] [address] Care Team Providers Care Mortuary Operations Manager Name Role Phone No, Physician Primary Care Provider [phone] Hannah Subramanian DO Unavailable [phone] Allergies No known active allergies Medications [...] on file Legal Sex Female 3:37 AM GAS STATION CLERK Gender Identity Not on file Sexual Orientation Not on file Obstetrics History Para Term AB IAB SAB Ectopic Multiple Livin g Live Births 0 0 0 0 0 0 0 0 0 0 0 Last Filed Vital Signs Vital Sign Reading Time Taken Comments Blood Pressure 114/66 07/09/2024 2:46 PM GAS STATION CLERK Pulse 86 07/09/2024 2:46 PM GAS STATION CLERK Temperature - - Respiratory Rate 18 07/09/2024 2:46 PM GAS STATION CLERK Oxygen Saturation 100% 07/09/2024 2:46 PM GAS STATION CLERK Inhaled Oxygen Concentration - - Weight 63 kg (139 lb) 07/09/2024 2:46 PM GAS STATION CLERK Height 157.5 cm (5' 2) 07/09/2024 2:46 PM GAS STATION CLERK Body Mass Index 25.42 07/09/2024 2:46 PM GAS STATION CLERK Plan of Treatment Health Maintenance Due Date [...] patient's age to complete this topic Insurance [facility] Care Teams Mortuary Operations Manager Relationship Specialty Start Date End Date No, Physician PCP - General 07/09/24 Hannah Subramanian, [address] [place] [address] Family Medicine 07/09/24
--- OUTSIDE RECORDS SUMMARY | 2025-05-20 19:22 | XMS_ITS | Encounter Summary ---
Author Organization [facility] Address [address] [place] [address] Care Team Providers Care Combination Building Inspector Name Role Phone Hannah Subramanian DO Primary Care Provider [phone] Encounter Details Date Type Department Care Team (Late st Contact Info) Description 06/29/2023 Prep for Case [facility] Family Medicine [address] [place] [phone] Hannah Subramanian DO [address] [facility] [address] [place] [address] Social History Tobacco Use Types [...] documented as of this encounter Care Teams Combination Building Inspector Relationship Specialty Start Date End Date Hannah Subramanian DO [address] [address] PCP - General Family Medicine 09/07/21 documented as of this encounter
--- OUTSIDE RECORDS SUMMARY | 2025-05-20 19:22 | XMS_ITS | Clinical Summary ---
Author Organization [facility] Address [address] [place] [address] Care Team Providers Care Brewing Technician Name Role Phone Guicho Hanley MD Primary Care Provider [phone] Source Comments [facility],non-owned Affiliates and Associated Physician Practices is amultiple site organization consisting of ambulatory clinics and hospital sitesin [place], [place], [place] and [place]. This disclosure is being madepursuant to the Care Everywhere program and may not contain all information available regarding this patient. Last updated 18.[facility] [address] [employer] Social History Tobacco Use Types Packs/Day Years Used Date Smoking Tobacco: Never Assessed Comments Unknown Sex and Gender Information Value Date Recorded Sex Assigned at Not on file Legal Sex Female 2:15 PM HEART DOCTOR Gender Identity Not on file Sexual Orientation [...] 19+ 3-dose series) 2020 PAP SMEAR 2022 DEPRESSION SCREENING 08/15/2024 COVID-19 VACCINE (1 - 2023-2 5 season) 2025 INFLUENZA VACCINE (#1) 2025 ZOSTER VACCINE (1 [...] ID:Not on file (Home) Address: [address] [place] [address] Payer ID:Not on file Group ID:Not on file Type:Self Pay Address: [place], [place] Care Teams Brewing Technician Relationship Specialty Start Date End Date Guicho Hanley MD [phone] (work) PCP - General 05/24/12
--- OUTSIDE RECORDS SUMMARY | 2025-05-20 19:22 | XMS_ITS | Clinical Summary ---
Author Organization [facility] Address [address] [place] [address] Care Team Providers Care Drawer In Hand Name Role Phone Guicho Hanley MD Primary Care Provider [phone] Encounters Date Type Department Care Team Description 05/09/2025 6:56 AM CDT - 05/09/2025 11:59 PM CDT Hospital Encounter [facility] [place] [address] Linda Mayfield MD Dichsen, Stacie L, PT Discharge Disposition: Home or Self Care (Routine Discharge) 05/09/2025 Travel 04/03/2025 6:59 AM CDT - 04/03/2025 11:59 PM CDT Hospital Encounter [facility] [place] [address] Linda Mayfield MD Dichsen, Stacie L, PT Discharge Disposition: Home or Self Care (Routine Discharge) 04/03/2025 Travel 03/07/2025 7:00 AM CDT - 03/07/2025 11:59 PM CDT Hospital Encounter [facility] [place] [address] Linda Mayfield MD Dichsen, Stacie L, PT Discharge Disposition: Home or Self Care (Routine Discharge) 03/07/2025 Travel 02/28/2025 7:58 AM CDT - 02/28/2025 11:59 PM CDT Hospital Encounter [facility] [place] [address] Linda Mayfield MD Dichsen, Stacie L, PT Discharge Disposition: Home or Self Care (Routine Discharge) 02/28/2025 Travel 02/21/2025 9:30 AM CDT - 02/21/2025 11:59 PM CDT Hospital Encounter [facility] [place] [address] Linda Mayfield MD Dichsen, Stacie L, PT Discharge Disposition: Home or Self Care (Routine Discharge) 02/21/2025 Travel from Last 3 Months Social History Tobacco Use Types Packs/Day Years Used Date Smoking Tobacco: Never Assessed Comments Unknown Sex and Gender Information Value Date Recorded Sex Assigned at Female 10/19/2024 1:05 PM BLADE SHARPENER Legal Sex Female 5:47 PM CDT Gender Identity Not on file Sexual Orientation Not on file Plan of Treatment Health Maintenance Due Date Last Done Comments Cervical Cancer Screening Pap Smear (Age 21 to 29) Every 3 Years 2001 Cervical Cancer Screening 2001 Annual Physical 2004 Hepatitis C 2019 COVID-19 Vaccine ( season) 2025 07/08/2021 Influenza Adult (#1) 2025 04/06/2019, 06/06/2013, 08/08/2012 DTaP, Tdap and Td Vaccines (9 - [...] patient's age to complete this topic Insurance [employer] MEDICA[employer] Care Teams Drawer In Hand Relationship Specialty Start Date End Date Guicho Hanley MD PCP - General 04/20/13
--- NOTE | 2025-05-20 19:23 | ED_ITS ---
HPI - URI/Sore Throat General Chief Complaint: Upper Respiratory Infection Stated Complaint: Sore Throat / RT Ear Pain Time Seen by Provider: 05/20/25 19:23 Source: patient Mode of arrival: ambulatory Limitations: no limitations History of Present Illness HPI Narrative: Francia is a 24-year-old female patient presenting to the clinic today with complaints of sore throat and right ear pain x1 day. She reports no fevers, chills, body aches. Has taken ibuprofen for symptoms. Denies any chest pain or shortness of breath. 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 Related Data Allergies Allergy/AdvReac Type Severity Reaction Status Date / Time No Known Allergies Allergy Verified 05/20/25 19:32 Review of Systems Review of Systems: Pertinent positives per HPI. Patient denies any fever, chills, rash, headache, visual changes, dizziness, shortness of breath, chest pain, palpitations, nausea, vomiting, diarrhea, constipation, abdominal pain, or any urinary issues. PMFSH Social History Social History Smoking status: Never smoker Second hand tobacco smoke exposure: Yes Alcohol intake: current Drinks per week: 2 Alcohol use details: sometimes 6 per week but not often Substance use type: does not use Living arrangements: alone Gender identity (if verbalized by the patient): Female Spiritual care concerns: No Comments At the time of my signature, I reviewed and agree with the nursing past medical, surgical, social, and family history. There is no relevant family history pertinent to the patient complaint. Exam Narrative: General: Well-developed, well nourished, in no apparent distress Head: Normocephalic, atraumatic Eyes: Pupils equally round and reactive to light bilaterally, EOM intact, sclera and conjunctive clear, no discharge, lids normal Ears: Left TMs intact and clear, right TM intact, bulging, congested, ear canals clear, no drainage, grossly hearing normal. Nose: Nares patent, no discharge, no inflammation, no sinus tenderness. Mouth: Oral pharynx red with tonsil enlarged without lesions or masses, good dentition, MMM. Neck: Supple, trachea midline, no enlargement of anterior or posterior cervical nodes, no thyroid masses or goiter palpable. Cardio: Regular rate and rhythm, s1 and s2 normal, no murmur appreciated. Resp: Clear to auscultation bilaterally, no rhonchi, rales, wheezing or rubs Course Course Emergency Course: Portions of this record may have been created with voice recognition software. Level of Care: Express Care Visit Vital Signs Vital signs: Vital Signs Temperature 36.7 C 05/20/25 19:30 Pulse Rate 76 05/20/25 19:30 Respiratory Rate 18 05/20/25 19:30 Blood Pressure 106/69 05/20/25 19:30 Pulse Oximetry 100 05/20/25 19:30 Oxygen Delivery Room Air 05/20/25 19:30 Temperature 36.7 C 05/20/25 19:30 Pulse Rate 76 05/20/25 19:30 Respiratory Rate 18 05/20/25 19:30 Blood Pressure 106/69 05/20/25 19:30 Pulse Oximetry 100 05/20/25 19:30 Oxygen Delivery Room Air 05/20/25 19:30 Vital signs reviewed MDM - URI/Sore Throat MDM Narrative Medical decision making narrative: At the time of visit patient is resting comfortably on the exam table. Patient appears to be nontoxic. Complaints of sore throat and right ear pain x1 day. She reports no fevers, chills, body aches. Has taken ibuprofen for symptoms. Denies any chest pain or shortness of breath. 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 On exam patient has TMs intact, right TM congested in bulging, no nasal drainage, oral pharynx red with bilateral tonsillar enlargement, lung sounds are clear, heart rates regular rate rhythm. Strep test was ordered Labs: Strep test was performed and negative in the clinic today. We will send strep for culture. Plan: I suspect patient has right otalgia, serous otitis, pharyngitis. Prescription for prednisone was sent to the pharmacy. Supportive measures were discussed with the patient and they voiced understanding discharge instructions and agrees to treatment plan. Return precautions reviewed Differential Diagnosis Differential diagnosis: Likely upper respiratory infection, otitis media, sinusitis, viral infection, bronchitis, influenza, pharyngitis and other (COVID) Lab Data Labs: Lab Results 05/20/25 Range/Units 19:47 POC Grp A Strep Screen Negative (Negative) Discharge Plan Discharge Clinical Impression: Acute dysfunction of right eustachian tube Acute serous otitis media of right ear Qualifiers: Recurrence: non-recurrent Qualified Code(s): H65.01 - Acute serous otitis media, right ear Pharyngitis Qualifiers: Pharyngitis/tonsillitis etiology: unspecified etiology Qualified Code(s): J02.9 - Acute pharyngitis, unspecified Patient Disposition: Home Condition: Stable Instructions: Antibiotic Form, Pharyngitis (ED), Earache (ED), Fluid In The Ear (Serous Otitis Media) (ED) Additional Instructions: Take prescription medications only as prescribed-prednisone Increase fluids and stay well hydrated May take Tylenol or motrin as directed on bottle for pain/fever May use Flonase 1 spray in each nare daily May take OTC antihistamines such as Zyrtec or Claritin daily as directed on bottle May apply Vicks vapor rub to chest to open sinuses Sinus rinses for congestion Cepacol spray, cough drops, throat lozenges, warm tea with honey/lemon, gargle salt water to soothe throat BRAT diet for diarrhea Clear liquids x 24 hours then advance as tolerated for nausea/vomiting Go to the ED if you develop a worsening in your condition- high fever not controlled by Tylenol or Motrin, dehydration, weakness, lethargy, shortness of breath, or chest pain. Follow up with your PCP in 3-5 days if symptoms persist. Patient Language: Italian Prescriptions: New prednisone 20 mg tablet 40 mg PO DAILY 5 Days Qty: 10 0RF Follow-up/Referrals: UNKNOWN,DOCTOR [Primary Care Provider] Time of Disposition: 19:45 Quality NIHSS Nursing Documentation ED NIHSS nursing documentation: reviewed/agree
--- OUTSIDE RECORDS SUMMARY | 2025-05-20 19:24 | XMS_ITS | Clinical Summary ---
Author Organization [facility] Address [address] [place] [address] Care Team Providers Care Press Service Reader Name Role Phone Moris Hannah Yani ALEGRIA Primary Care Provider [phone] Allergies No known active allergies Medications medroxyPROGESTERon [...] medicatons Assessment & Plan (07/04/2023 9:12 AM CAGE/VAULT SUPERVISOR): Patient doing well on current medication WIll refill Lexapro Encounter for initial prescr iption of injectable contraceptive 07/04/2023 Encounter for surveillance of injectable contrac eptive 09/11/2021 Assessment & Plan (09/11/2021 12:43 PM CAGE/VAULT SUPERVISOR): Patient tolerating medication without side effects Will continue with current treatment Elevated liver enzymes 05/26/2021 Assessment & Plan (05/26/2021 1:04 PM CDT): Reviewed ER lab results with patient and foster mother Recommend recheck of labs Avoid tylenol for pain control, advise limiting Enochs given in ER Encourage heat/ice, topical analgesics [...] Screening 03/21/2019 03/21/2018 COVID-19 Vaccine (2 - 2024- season) 2025 07/08/2021 Influenza Vaccine (#1) 2025 9, 06/06/2013, [...] to complete this topic Insurance [place] Member Subscriber Plan / Payer (Ef fective for All Dates) Name:Francia Ortiz Relation to Subscriber:Self Name:Francia Ortiz Payer ID:Not on file Group ID:Not on file Type:Medicaid Address: [address] [id number] Care Teams Press Service Reader Relationship Specialty Start Date End Date Hannah Subramanian DO [address] [place] [address] PCP - General Family Medicine 09/07/21
[2025-05-20 19:30] VITALS: BP 106/69; PULSE 76; RESP 18; TEMP 36.7; O2SAT 100
[2025-05-20 19:48] LABS: EDSTREPNEGPOS1 Negative (Negative)
== END 2025-05-20 19:50 | disposition home or self-care (01) ==
PROVIDERS: Emergency Provider Nurse Practitioner Family
DX: H69.91 Unspecified Eustachian tube disorder, right ear (principal); H65.01 Acute serous otitis media, right ear; J02.9 Acute pharyngitis, unspecified; Z86.16 Personal history of COVID-19
CPT/HCPCS: 87081; 87880; 99213; G0463

== ENCOUNTER 2025-06-20 11:01 | Emergency (ER) | payer OTHER, SELFPAY ==
[2025-06-20 11:08] VITALS: BP 110/66; PULSE 65; RESP 18; TEMP 36.7; O2SAT 100
--- NOTE | 2025-06-20 11:08 | ED_ITS ---
HPI - URI/Sore Throat General Chief Complaint: Ear Stated Complaint: LT EAR PAIN Time Seen by Provider: 06/20/25 11:11 Source: patient, RN notes reviewed and old records reviewed Mode of arrival: ambulatory Limitations: no limitations History of Present Illness HPI Narrative: 24-year-old female presents to the [facility] with left ear pain since last night. No treatment prior to arrival Onset (ago): day(s) (1) Treatments prior to arrival: none Related Data Allergies Allergy/AdvReac Type Severity Reaction Status Date / Time No Known Allergies Allergy Verified 06/20/25 11:14 Review of Systems Review of Systems: All systems reviewed & are unremarkable except as noted in HPI and below Constitutional: Constitutional: Reports no additional constitutional complaints ENT: Reports as per HPI and Reports otalgia (Left) Cardiovascular: Cardiovascular: Reports no additional cardiovascular complaints, Denies chest pain and Denies dyspnea Respiratory: Respiratory: Reports no additional respiratory complaints, Denies chest congestion, Denies cough and Denies dyspnea Musculoskeletal: Musculoskeletal: Reports no additional musculoskeletal complaints Integumentary/Breasts: Skin/Breast: Reports system reviewed and no additional complaints, except as docu PMFSH Social History Social History Smoking status: Never smoker Second hand tobacco smoke exposure: Yes Alcohol intake: current Drinks per week: 2 Alcohol use details: sometimes 6 per week but not often Substance use type: does not use Living arrangements: alone Gender identity (if verbalized by the patient): Female Spiritual care concerns: No Comments At the time of my signature, I reviewed and agree with the nursing past medical, surgical, social, and family history. There is no relevant family history pertinent to the patient complaint. Exam Const: General: cooperative, healthy appearing, comfortable, no acute distress, well developed, alert and well nourished Nutritional Appearance: well nourished Orientation/consciousness: patient oriented x3 Limitations: no limitations HENMT: Head: normal to inspection Ears: hearing grossly normal bilaterally, external ears normal, EAC's normal, mastoids normal, no periauricular adenopathy and TM abnormal bulging on the left and with fluid behind the TM bilateral; not erythematous, with no loss of landmarks, not perforated and not scarred Face/Nose/Sinus: Normal external nose present, Normal nares present and Normal nasal mucous membranes and turbinates present Mouth: Yes Normal oral and palatal mucosa present, Yes lip normal, Yes tongue normal and Yes moist mucous membranes Throat: posterior oropharynx normal, uvula midline, postnasal drainage and no uvular edema Eyes: General: appearance normal, both eyes and all related structures Alignment and Position: alignment normal Neck: Neck: normal visual inspection, full ROM, no lymphadenopathy and no meningeal signs Chest: Chest palpation & inspection: normal inspection of the chest Resp: Effort & Inspection: normal respiratory effort and able to speak in c omplete sentences Auscultation: clear to auscultation bilaterally, no crackles, no rales, no rhonchi and no wheezes Cardio: Rate: regular rate Skin: General skin exam: normal color and no rashes or lesions noted Neuro: General: patient oriented x3, gait normal, moves all extremities and no meningeal signs Cognition (Neuro): normal cognition Speech: normal speech Gait exam (Neuro): Normal gait present Extrem: General: normal to inspection, full ROM, capillary refill normal and normal gait Psych: Appearance: grossly normal and well kempt Mental Status: mental status grossly normal Speech and movement: Normal speech and movement present and Clear speech present Affect: normal affect Attitude: cooperative Course Course Level of Care: Express Care Visit Vital Signs Vital signs: Vital Signs Temperature 98.1 F 06/20/25 11:08 Pulse Rate 65 06/20/25 11:08 Respiratory Rate 18 06/20/25 11:08 Blood Pressure 110/66 06/20/25 11:08 Pulse Oximetry 100 06/20/25 11:08 Oxygen Delivery Room Air 06/20/25 11:08 Temperature 98.1 F 06/20/25 11:08 Pulse Rate 65 06/20/25 11:08 Respiratory Rate 18 06/20/25 11:08 Blood Pressure 110/66 06/20/25 11:08 Pulse Oximetry 100 06/20/25 11:08 Oxygen Delivery Room Air 06/20/25 11:08 Reviewed MDM - URI/Sore Throat MDM Narrative Medical decision making narrative: Patient sitting in exam room. Patient is nontoxic, vitals stable. Patient presents with left hip ear pain that started last night. Patient has the sniffles No treatment prior to arrival Clear fluid noted behind both TMs mild bulging noted to the left but no erythema. Landmarks are noted. Patient is appropriate for outpatient treatment with [id number] products, Flonase and Claritin called in Encourage patient to follow-up with ENT Discharge instructions reviewed with patient, as well as provided in writing per nursing staff. The instructions also include specific and strict return/GO TO THE ER as well as f/u information. All questions have been answered, and the patient deny any further questions with discharge and discharge plan. Some parts of this dictation were generated by voice recognition software and may contain typographical and/or grammatical inaccuracies. Differential Diagnosis Differential diagnosis: Likely upper respiratory infection, otitis media, sinusitis, viral infection, bronchitis, influenza and pharyngitis Critical Care Time Critical Care Time Critical Care Time: No Discharge Plan Discharge Clinical Impression: Ear ache Patient Disposition: Home Condition: Stable Instructions: Antibiotic Form, Fluid In The Ear (Serous Otitis Media) (ED) Additional Instructions: Your symptoms are likely due to a viral illness, which is not treated with antibiotics. Typically viral infections last 7-10 days, can linger for couple of weeks. It is very important to treat your symptoms. Drink plenty of water, Gatorade, Pedialyte, ice pops or Jell-O. -Alternate Tylenol and Motrin per package directions for fever or pain. You can alternate every 4 hours -Antihistamine medication such as Zyrtec/Claritin/Opal during the day can help improve symptoms. -doing daily nasal irrigations can help relieve pressure your sinuses. Things like a Neti pot -Use Flonase twice a day for 5 days then daily to help reduce the inflammation and dry up your sinuses. -You can also use Mucinex. Be sure to drink plenty of water with this medication at least 8 ounces with every dose and it is important to drink 8 to 10 glasses of water per day. Water is a natural decongestant -Eat and drink things that are easy to swallow, like tea or soup, or popsicles. -Oral rinses such as: Salt water gargles and/or may use topical anesthetic (eg. Chloraseptic spray) or lozenges to relieve dryness or throat pain). -Frequent hand washing or hand mma fighter is one of the best ways to prevent spread of infection. -Using a vaporizer or humidifier at night will also help thin secretions and help with coughing up phlegm. -Follow up with primary care provider in 7-10 days if condition is not improving - For new or worsening symptoms go directly to the nearest ER Patient Language: Tristanian Prescriptions: New loratadine 10 mg tablet 10 mg PO DAILY Qty: 30 0RF fluticasone propionate [Flonase Allergy Relief] 50 mcg/actuation spray,suspension 2 spray intranasal DAILY Qty: 16 0RF Rx Instructions: administer into each nostril Follow-up/Referrals: Moris,Hannah Cooper [Other] - 2 Weeks Brad Laura MD [Physician, Ear, Nose, Throat] - 2 Weeks Stand Alone Forms: Work/School Release IP Time of Disposition: 11:20
--- OUTSIDE RECORDS SUMMARY | 2025-06-20 19:00 | XMS_ITS | Encounter Summary ---
Author Organization [facility] Address [address] [place] [address] Care Team Providers Care Endband Cutter Hand Name Role Phone Hannah Subramanian DO Primary Care Provider [phone] Encounter Details Date Type Department Care Team (Late st Contact Info) Description 06/29/2023 Prep for Case [facility] Family Medicine [address] [place] [id number] Hannah Subramanian DO [address] [place] [address] Social History Tobacco Use Types [...] documented as of this encounter Care Teams Endband Cutter Hand Relationship Specialty Start Date End Date Hannah Subramanian DO [address] [address] PCP - General Family Medicine 09/07/21 documented as of this encounter
--- OUTSIDE RECORDS SUMMARY | 2025-06-20 19:00 | XMS_ITS | Clinical Summary ---
Author Organization [facility] Address [address] [place] [address] Care Team Providers Care Supervisor Lead Burning Name Role Phone Moris Hannah Yani ALEGRIA Primary Care Provider [phone] Allergies No known active allergies Medications medroxyPROGESTERon [...] medicatons Assessment & Plan (07/04/2023 9:12 AM FINISHING MANAGER): Patient doing well on current medication WIll refill Lexapro Encounter for initial prescr iption of injectable contraceptive 07/04/2023 Encounter for surveillance of injectable contrac eptive 09/11/2021 Assessment & Plan (09/11/2021 12:43 PM FINISHING MANAGER): Patient tolerating medication without side effects Will continue with current treatment Elevated liver enzymes 05/26/2021 Assessment & Plan (05/26/2021 1:04 PM CDT): Reviewed ER lab results with patient and foster mother Recommend recheck of labs Avoid tylenol for pain control, advise limiting Ethan given in ER Encourage heat/ice, topical analgesics [...] this topic Insurance [place] Care Teams Supervisor Lead Burning Relationship Specialty Start Date End Date Hannah Subramanian DO [address] [place] [address] PCP - General Family Medicine 09/07/21
--- OUTSIDE RECORDS SUMMARY | 2025-06-20 19:00 | XMS_ITS | Clinical Summary ---
Author Organization [facility] Address [address] [place] [address] Care Team Providers Care Balloon Dipper Name Role Phone No, Physician Primary Care Provider Hannah Subramanian DO Unavailable [phone] Allergies No known active allergies Medications [...] on file Legal Sex Female 3:37 AM GENETIC COUNSELOR Gender Identity Not on file Sexual Orientation Not on file Obstetrics History Para Term AB IAB SAB Ectopic Multiple Livin g Live Births 0 0 0 0 0 0 0 0 0 0 0 Last Filed Vital Signs Vital Sign Reading Time Taken Comments Blood Pressure 114/66 07/09/2024 2:46 PM GENETIC COUNSELOR Pulse 86 07/09/2024 2:46 PM GENETIC COUNSELOR Temperature - - Respiratory Rate 18 07/09/2024 2:46 PM GENETIC COUNSELOR Oxygen Saturation 100% 07/09/2024 2:46 PM GENETIC COUNSELOR Inhaled Oxygen Concentration - - Weight 63 kg (139 lb) 07/09/2024 2:46 PM GENETIC COUNSELOR Height 157.5 cm (5' 2) 07/09/2024 2:46 PM GENETIC COUNSELOR Body Mass Index 25.42 07/09/2024 2:46 PM GENETIC COUNSELOR Plan of Treatment Health Maintenance Due Date [...] patient's age to complete this topic Insurance [facility] Care Teams Balloon Dipper Relationship Specialty Start Date End Date No, Physician PCP - General 07/09/24 Hannah Subramanian, [address] [place] [address] Family Medicine 07/09/24
--- OUTSIDE RECORDS SUMMARY | 2025-06-20 19:00 | XMS_ITS | Clinical Summary ---
Author Organization [facility] Address [address] [place] [address] Care Team Providers Care Senior Java Software Developer Name Role Phone Guicho Hanley MD Primary Care Provider [phone] Encounters Date Type Department Care Team Description 05/09/2025 6:56 AM CDT - 05/09/2025 11:59 PM CDT Hospital Encounter [facility] [address] Linda Mayfield MD Dichsen, Stacie L, PT Discharge Disposition: Home or Self Care (Routine Discharge) 05/09/2025 Travel 04/03/2025 6:59 AM CDT - 04/03/2025 11:59 PM CDT Hospital Encounter [facility] [place] [address] Linda Mayfield MD Dichsen, Laura Negron, PT Discharge Disposition: Home or Self Care (Routine Discharge) 04/03/2025 Travel from Last 3 Months Social History Tobacco Use Types Packs/Day Years Used Date Smoking Tobacco: Never Assessed Comments Unknown Sex and Gender Information Value Date Recorded Sex Assigned at Female 10/19/2024 1:05 PM TRUST ADMINISTRATIVE ASSISTANT Legal Sex Female 5:47 PM CDT Gender Identity Not on file Sexual Orientation Not on file Plan of Treatment Health Maintenance Due Date Last Done Comments Cervical Cancer Screening Pap Smear (Age 21 to 29) Every 3 Years 2001 Cervical Cancer Screening 2001 Annual Physical 2004 Hepatitis A Vaccines (2 of 2 - 2-dose series) 02/18/2011 08/21/2010, 03/19/2010 Hepatitis C 2019 COVID-19 Vaccine (2 - 2025-26 season) 2025 07/08/2021 Influenza Adult (#1) 2025 04/06/2019, 06/06/2013, 08/08/2012 DTaP, Tdap and Td Vaccines (9 - Td or Tdap) 01/18/2026 01/19/2016, 05/17/2013, 04/10/2013, Additional history exists Hepatitis B Vaccines Completed 03/21/2002, 2001, 2001 HPV Vaccines Completed 01/19/2016, 02/2015, 03/25/2014, Additional history exists Meningococcal Vaccine Completed [...] this topic Insurance [place] MED[place] Care Teams Senior Java Software Developer Relationship Specialty Start Date End Date Guicho Hanley MD PCP - General 04/20/13
--- OUTSIDE RECORDS SUMMARY | 2025-06-20 19:00 | XMS_ITS | Clinical Summary ---
Author Organization [facility] Address [address] [place] [address] Care Team Providers Care Beater Out Leveling Machine Name Role Phone Guicho Hanley MD Primary Care Provider [phone] Source Comments [facility],non-owned Affiliates and Associated Physician Practices is amultiple site organization consisting of ambulatory clinics and hospital sitesin [place], [place], [place] and [place]. This disclosure is being madepursuant to the Care Everywhere program and may not contain all information available regarding this patient. 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
== END 2025-06-20 11:24 | disposition home or self-care (01) ==
PROVIDERS: Emergency Provider Nurse Practitioner
DX: H92.02 Otalgia, left ear (principal)
CPT/HCPCS: 99213; G0463